=== PATIENT | female | born 1955 | race American Indian/Alaskan Native ===

== ENCOUNTER 2017-10-18 18:00 | Emergency (ER) | payer OTHER ==
[2017-10-18 18:30] VITALS: BP 108/60
[2017-10-18] MEDS ORDERED: MOTRIN PO ONE (22:39)
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
== END 2017-10-18 23:00 | disposition home or self-care (01) ==
LOC: ED 18:00
DX: H43.391 Other vitreous opacities, right eye (principal); F17.200 Nicotine dependence, unspecified, uncomplicated; V49.3XXA Car occupant (driver) (passenger) injured in unspecified nontraffic accident, initial encounter; Y93.89 Activity, other specified; Y99.8 Other external cause status; Y92.488 Other paved roadways as the place of occurrence of the external cause
CPT/HCPCS: 99283